=== PATIENT | male | born 1995 | race Caucasian/White ===

== ENCOUNTER 2019-10-01 09:07 | Emergency (ER) | payer OTHER, SELFPAY ==
--- NOTE | ~2019-10-01 | XR_ITS ---
XR hand LT min 3V 10/01/2019 09:28 INDICATION: Left hand pain. Swelling of the fourth and fifth metacarpals. PROCEDURE: 3 views left hand COMPARISON: No prior studies for comparison. FINDINGS: Fracture, dislocation or subluxation is not identified. The soft tissues appear within norm al limits. No foreign bodies are identified. IMPRESSION: 1: NO ACUTE BONE OR JOINT ABNORMALITY IDENTIFIED. Reviewed, dictated and finalized at location A.
[2019-10-01 09:18] VITALS: BP 131/88; PULSE 83; RESP 16; TEMP 37.2; O2SAT 99
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
== END 2019-10-01 09:53 | disposition home or self-care (01) ==
PROVIDERS: Emergency Provider Nurse Practitioner Family
DX: S60.222A Contusion of left hand, initial encounter (principal); V18.0XXA Pedal cycle driver injured in noncollision transport accident in nontraffic accident, initial encounter
CPT/HCPCS: 73130; 99213; G0463

== ENCOUNTER 2021-09-12 09:04 | Emergency (ER) | payer OTHER, SELFPAY ==
[2021-09-12 09:10] VITALS: BP 145/90; PULSE 83; RESP 16; TEMP 36.6; O2SAT 100
--- NOTE | 2021-09-12 09:12 | ED.EAR ---
HPI - Ear Problem General Chief complaint: Ear Stated complaint: ear pain Time Seen by Provider: 09/12/21 09:12 Source: patient, RN notes reviewed and old records reviewed Mode of arrival: ambulatory Limitations: no limitations History of Present Illness HPI Narrative: 25-year-old male presents to the [facility] with complaints of bilateral ear pain since Thursday, 4 days. No treatment prior to arrival. Denies fevers, chest pain, abdominal pain. No sinus symptoms. MD Complaint: ear pain Related Data Allergies Allergy/AdvReac Type Severity Reaction Status Date / Time No Known Allergies Allergy Verified 09/12/21 09:23 Review of Systems Review of Systems: All systems reviewed & are unremarkable except as noted in HPI and below Constitutional: Constitutional: Reports no additional constitutional complaints, Denies chills and Denies fever(s) Eyes: Eyes: Reports no additional eye complaints ENT: Reports as per HPI, Denies change in voice, Denies dental pain, Denies vertigo, Denies dizziness and Denies throat swelling Comments: Ear pain bilateral Cardiovascular: Cardiovascular: Reports no additional cardiovascular complaints, Denies chest pain and Denies dyspnea Respiratory: Respiratory: Reports no additional respiratory complaints, Denies cough and Denies dyspnea Gastrointestinal: Gastrointestinal: Reports no additional gastrointestinal complaints, Denies abdominal pain, Denies nausea and Denies vomiting Musculoskeletal: Musculoskeletal: Reports no additional musculoskeletal complaints Integumentary/Breasts: Skin/Breast: Reports system reviewed and no additional complaints, except as docu Neurologic: Reports system reviewed and no additional complaints, except as documented, Denies vertigo and Denies dizziness Psychiatric: Psychiatric: Reports no additional psychiatric complaints Allergic/Immunologic: Allergic/Immunologic: Reports no additional allergic/immunologic complaints and Denies throat swelling PMFSH Past Medical History Medical History (Updated 09/12/21 @ 17:18 by Carline Corbin APRN) No significant medical problems Social History Social History Gender identity (if verbalized by the patient): Male Comments At the time of my signature, I reviewed and agree with the nursing past medical, surgical, social, and family history. There is no relevant family history pertinent to the patient complaint. Exam Const: General: healthy appearing and no acute distress Nutritional Appearance: well nourished Orientation/consciousness: patient oriented x3 Limitations: no limitations HENMT: Head: normal to inspection Ears: external ears normal, EAC's normal, mastoids normal, no periauricular adenopathy and TM abnormal bulging bilateral, erythematous bilateral and with loss of landmarks bilateral General nose exam: Normal external nose present and Normal nasal mucous membranes and turbinates present Face and sinus: normal facial exam Mouth: Yes Normal oral and palatal mucosa present Throat: posterior oropharynx normal, tonsils normal and uvula midline Eyes: Conjunctivae: conjunctivae normal Pupils: Equal, round and reactive pupils present Neck: Neck: normal visual inspection, no lymphadenopathy and no meningeal signs Chest: Chest palpation & inspection: normal inspection of the chest Resp: Effort & Inspection: normal respiratory effort and no use of accessory muscles Auscultation: clear to auscultation bilaterally, no crackles, no rales, no rhonchi and no wheezes Cardio: Rate: regular rate Rhythm: regular rhythm : General: Yes no CVA tenderness Back/Spine/Pelvis: Back: no CVA tenderness Skin: General skin exam: normal color Rashes: no rashes Wounds: no wounds Neuro: General: patient oriented x3, gait normal, moves all extremities, no meningeal signs and no focal motor deficits Cranial nerves: Yes Equal, round and reactive pupils present Speech: raissa
[2021-09-12 09:20] VITALS: BP 145/90; PULSE 83; RESP 16; TEMP 36.6; O2SAT 100
== END 2021-09-12 09:30 | disposition home or self-care (01) ==
PROVIDERS: Emergency Provider Nurse Practitioner
DX: H66.003 Acute suppurative otitis media without spontaneous rupture of ear drum, bilateral (principal)
CPT/HCPCS: 99213; G0463

== ENCOUNTER 2021-09-27 23:30 | Emergency (ER) | payer OTHER, SELFPAY ==
[2021-09-27 23:33] VITALS: BP 163/86; PULSE 98; RESP 17; TEMP 36.1; O2SAT 100
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
--- NOTE | 2021-09-28 02:05 | PC.NURSE ---
Pt seen to be leaving department by this RN and cosmetic account coordinator. Pt in no acute distress. Pt had spoken with provider and this RN assumes pt eloped at this time.
== END 2021-09-28 02:08 | disposition left against medical advice (07) ==
PROVIDERS: Emergency Provider Emergency Medicine
DX: S01.412A Laceration without foreign body of left cheek and temporomandibular area, initial encounter (principal); W01.0XXA Fall on same level from slipping, tripping and stumbling without subsequent striking against object, initial encounter
CPT/HCPCS: 99282

== ENCOUNTER 2023-04-20 12:41 | Emergency (ER) | payer OTHER, SELFPAY ==
[2023-04-20 12:52] VITALS: BP 164/105; PULSE 68; RESP 16; TEMP 37.1; O2SAT 97
--- NOTE | 2023-04-20 13:03 | ED.EAR ---
HPI - Ear Problem General Chief complaint: Ear Stated complaint: Ears Irritation Time Seen by Provider: 04/20/23 13:04 Source: patient and RN notes reviewed Mode of arrival: ambulatory Limitations: no limitations History of Present Illness HPI Narrative: 27-year-old male presents concern for bilateral ear pain for 1 week. Reports history of ear infections. He denies taking any medications for his symptoms. He denies drainage from the ears. He denies fever. He denies rhinorrhea, nasal congestion, sore throat, cough Complaint: ear pain Related Data Allergies Allergy/AdvReac Type Severity Reaction Status Date / Time No Known Allergies Allergy Verified 04/20/23 13:01 Review of Systems Review of Systems: CONSTITUTIONAL: Denies malaise, chills, sweats, or fever. EYES: Denies visual changes, redness, or discharge. ENT: Denies rhinorrhea, congestion, sinus pain, and sore throat. Reports bilateral ear pain CARDIOVASCULAR: Denies chest pain, palpitations, or edema. RESPIRATORY: Denies cough. Denies dyspnea. GASTROINTESTINAL: Denies abdominal pain, nausea, vomiting, diarrhea SKIN: Denies rash or itching. MUSCULOSKELETAL: Denies myalgia. NEUROLOGIC: Denies headache. All systems reviewed & are unremarkable except as noted in HPI and below PMFSH Past Medical History Medical History No significant medical problems Social History Social History Gender identity (if verbalized by the patient): Male Comments At time of signature, agree with nursing past medical, surgical, social and family history. There is no relevant family history pertinent to the presenting complaint Exam Narrative: GENERAL: Well-appearing, well-nourished, and in no acute distress. HEAD: Normocephalic EYES: PERRLA, conjunctivae clear ENT: Nares clear. Mucous membranes moist. TM pearly lam with dull light reflex bilaterally; no tragal tenderness. Oropharynx not erythematous without lesions. Tonsils not enlarged and without exudate, no drooling, no hoarseness, no trismus, uvula midline. NECK: Supple. No lymphadenopathy CHEST: Clear to auscultation, breath sounds equal. No wheezing, rhonchi, rales, or stridor. No respiratory distress, speaks in full sentences. HEART: Regular rate and rhythm. No murmur heard. SKIN: Warm, dry, no rash. NEURO: Alert and oriented x3. PSYCH: Normal mood and affect Course Course Emergency Course: Patient is aware of diagnosis, understands and agrees to treatment plan. Anticipatory guidance given. Patient agrees to follow-up as directed and is aware of reasons to seek care at the emergency department. Portions of this record may have been created with voice recognition software Level of Care: Express Care Visit Vital Signs Vital signs: Vital Signs Temperature 98.7 F 04/20/23 12:52 Pulse Rate 68 04/20/23 12:52 Respiratory Rate 16 04/20/23 12:52 Blood Pressure 164/105 H 04/20/23 12:52 Pulse Oximetry 97 04/20/23 12:52 Oxygen Delivery Room Air 04/20/23 12:52 Temperature 98.7 F 04/20/23 12:52 Pulse Rate 68 04/20/23 12:52 Respiratory Rate 16 04/20/23 12:52 Blood Pressure 164/105 H 04/20/23 12:52 Pulse Oximetry 97 04/20/23 12:52 Oxygen Delivery Room Air 04/20/23 12:52 Reviewed. Medical Decision Making MDM Narrative Medical decision making narrative: Differential diagnosis considered: Thomas virus, strep pharyngitis, allergic rhinitis, upper respiratory tract infection, sinusitis, rhinosinusitis, nasopharyngitis. viral pharyngitis, otitis media, otitis externa, otitis effusion, cerumen impaction, foreign body. Exam findings show no acute concerns or changes; patient is non-toxic appearing and is in no distress. Patient is appropriate for outpatient treatment and follow-up. Vital Signs Vital Signs: Vital Signs Temperature 98.7 F 04/20/23 12:52 Pulse
== END 2023-04-20 13:11 | disposition home or self-care (01) ==
PROVIDERS: Emergency Provider Nurse Practitioner
DX: H73.893 Other specified disorders of tympanic membrane, bilateral (principal)
CPT/HCPCS: 99213; G0463

== ENCOUNTER 2025-04-15 09:42 | Emergency (ER) | payer OTHER, SELFPAY ==
[2025-04-15 09:49] VITALS: BP 144/94; PULSE 75; RESP 18; TEMP 37.1; O2SAT 100
[2025-04-15] MEDS: LIDOCAINE 2% VISC SOLN 15 ML UDC PO (09:55)
--- NOTE | 2025-04-15 10:02 | ED_ITS ---
HPI - Dental/Oral General Chief complaint: Dental/Oral Stated complaint: blood clot in tooth patient presents to the office with complaints of large painful clot stuck in left upper gums where tooth was pulled yesterday. Patient reports he is currently on a 2nd round of cephalexin started by his dentist but does report he does not feel this antibiotic is strong enough. Patient reports has been applying pressure and doing the warm salt water gargles as instructed by dentist yesterday and upon waking this morning was slightly dizzy and look to see the significant clot in the area. Patient reports touching the gums around the area significantly painful. Denies facial pain, headache, ear pain, or drainage from the area. Related Data Allergies Allergy/AdvReac Type Severity Reaction Status Date / Time No Known Allergies Allergy Verified 04/15/25 09:47 Review of Systems Constitutional: Constitutional: Reports as per HPI, Denies chills, Denies fatigue, Denies fever(s) and Denies weakness Eyes: Eyes: Reports no additional eye complaints ENT: Reports as per HPI, Reports dizziness and Denies sore throat Comments: Left upper dental pain Cardiovascular: Cardiovascular: Reports no additional cardiovascular complaints Respiratory: Respiratory: Reports no additional respiratory complaints Gastrointestinal: Gastrointestinal: Reports no additional gastrointestinal complaints Genitourinary: Genitourinary: Reports no additional male genitourinary complaints Musculoskeletal: Musculoskeletal: Reports no additional musculoskeletal complaints Integumentary/Breasts: Skin/Breast: Reports as per HPI, Denies erythema and Denies rash Neurologic: Reports as per HPI, Reports dizziness, Reports headache(s) and Denies weakness Psychiatric: Psychiatric: Reports no additional psychiatric complaints Endocrine: Endocrine: Reports no additional endocrine complaints Hematologic/Lymphatic: Hematologic/Lymphatic: Reports no additional hematologic/lymphatic complaints Allergic/Immunologic: Allergic/Immunologic: Reports no additional allergic/immunologic complaints [facility] Past Medical History Medical History (Updated 04/15/25 @ 10:04 by Jennifer Luis APRN, FREIGHT INSPECTOR-C) Anxiety Allergy Surgical History Surgical History (Updated 08/26/23 @ 14:13 by Reagan Liu APRN) History of open reduction and internal fixation (ORIF) procedure History of tonsillectomy and adenoidectomy History of myringotomy Family History Family History (Updated 08/26/23 @ 14:14 by Reagan Liu APRN) Father Skin cancer Hypertension Mother Hypertension Depression Thyroid disorder Sibling Hypertension Depression Grandparent History of lung cancer Social History Social History (Updated 08/26/23 @ 14:16 by Reagan Liu APRN) Smoking packs per day: 0.5 Smoking cigarettes per day: 10.0 Smoking status: Current every day smoker Tobacco type: cigarettes Alcohol intake: current Drinks per week: 6 Substance use: never Do You Feel Safe in your Home?: Yes Lack of Transportation: No Lack of Food: Never True Current Housing: I Have Housing Concerned About Future Housing: No Difficulty Paying Gas/Electric Bills: No Difficulty Paying for Meds: No Currently Unemployed: No Education: High School Diploma/GED Living arrangements: with family Occupation/Education: occupation Additional occupation/education comments: Work with [employer] Gender identity (if verbalized by the patient): Male Exam Const: General: healthy appearing and no acute distress Nutritional Appearance: well nourished Orientation/consciousness: patient oriented x3 Limitations: no limitations HENMT: Head: normal to inspection Face/Nose/Sinus: Normal external nose present and Normal nares present Face and sinus: normal facial exam and sinuses nontender Mouth: Yes lip normal and Yes moist mucous membranes Teeth and gingiva: abnormal tooth and associated gingiva Throat: posterior oropharynx normal Other: diffuse swelling to left upper gingiva with significant soft blood clot noted to fresh extraction area. Tenderness with palpation of gums. No active drainage or abscess noted Neck: Neck: normal visual inspection and no lymphadenopathy Resp: Effort & Inspection: normal respiratory effort Auscultation: clear to auscultation bilaterally Cardio: Rate: regular rate Rhythm: regular rhythm Skin: General skin exam: normal color Rashes: no rashes Wounds: no wounds Neuro: General: patient oriented x3 Speech: normal speech Gait exam (Neuro): Normal gait present Psych: Mental Status: mental status grossly normal Affect: normal affect Attitude: cooperative Course Course Level of Care: Express Care Visit Vital Signs Vital signs: Vital Signs Temperature 98.7 F 04/15/25 09:49 Pulse Rate 75 04/15/25 09:49 Respiratory Rate 18 04/15/25 09:49 Blood Pressure 144/94 H 04/15/25 09:49 Pulse Oximetry 100 04/15/25 09:49 Oxygen Delivery Room Air 04/15/25 09:49 Temperature 98.7 F 04/15/25 09:49 Pulse Rate 75 04/15/25 09:49 Respiratory Rate 18 04/15/25 09:49 Blood Pressure 144/94 H 04/15/25 09:49 Pulse Oximetry 100 04/15/25 09:49 Oxygen Delivery Room Air 04/15/25 09:49 Procedures Foreign Body Removal Foreign Body #1: Foreign Body Removal Date: 04/15/25 Foreign Body Removal Time: 10:00 Site: oral Description of foreign body: other (blood clot ) Sedation/Analgesia: none and other ( viscous lidocaine) Technique: manual removal and irrigation Complications: pain Post-procedure exam: awake, alert Foreign Body Removal Narrative: unable to remove blood clot without causing significant pain. MDM - Dental/Oral MDM Narrative Medical decision making narrative: attempted to irrigate and remove clot in Express Care today unable to without significant increase in pain. Will change patient to antibiotic and steroids as well as do warm saltwater rinses at home to gently break loose the clot. The patient was evaluated by myself in the express care. History is obtained from patient who is an independent historian and physical exam was performed. Available medical records were reviewed at this time. Exam findings show no acute concerns or changes; patient is non-toxic appearing and is in no distress. Patient is appropriate for outpatient treatment and follow-up. I have evaluated and discussed social determinants of health with the patient that could potentially impact subsequent diagnosis and treatment plans. Differential diagnosis and treatment plan were discussed with the patient. Patient agrees with discussion and after shared medical decision making agrees with plan of care. All questions were answered to the patient's satisfaction. Differential Diagnosis Differential diagnosis: Likely gingival abscess, dental caries, toothache, dental abscess, fracture of tooth and aphthous ulcer Medical Records Attestation: I reviewed the patient's medical records. Lab Data Attestation: I reviewed the patient's lab results. Discharge Plan Discharge Clinical Impression: Pain due to dental trauma Patient Disposition: Home Condition: Stable Instructions: Antibiotic Form, Acute Dental Trauma (ED), Toothache (ED), Gingivostomatitis (ED) Additional Instructions: Finish the entire course of antibiotics & use the mouthwash. After every time you eat be sure to use salt water gargles. Apply ice to face to help with pain. Dental problems can lead to other problems, so this is important to follow up with a dental provider. To solve the problem, You need to follow up with a dental provider, a list has been given to you. Please follow up with your dentist as soon as possible. Take Ibuprofen as prescribed for pain and to decrease swelling- take this with food Follow up with a Primary Care Provider (PCP) about medical needs. A PCP can help keep you healthy by preventive medicine and screening. Return to Urgent care or go to the ER for New or worsening symptoms. Patient Language: Ethiopian Prescriptions: New clindamycin HCl [Cleocin HCl] 300 mg capsule 300 mg PO Q8H Qty: 30 0RF lidocaine HCl [Lidocaine Viscous] 2 % solution 1 applic mucous membrane QID PRN (Reason: pain) Qty: 100 0RF methylprednisolone [Medrol (Curry)] 4 mg tablets,dose pack See Rx Instructions .ROUTE .COMPLEX Qty: 21 0RF Rx Instructions: for 6 days Follow-up/Referrals: Paola,ESSENCE Gates [Primary Care Provider, Unknown] Time of Disposition: 10:05
== END 2025-04-15 10:09 | disposition home or self-care (01) ==
PROVIDERS: Emergency Provider Nurse Practitioner Family; PCP Physician Assistant
DX: K08.89 Other specified disorders of teeth and supporting structures (principal); R42 Dizziness and giddiness; F17.210 Nicotine dependence, cigarettes, uncomplicated
CPT/HCPCS: 99213; G0463